=== PATIENT | female | born 1965 | race Caucasian/White ===

== ENCOUNTER → 2018-06-27 | Outpatient (CLI) | payer SELFPAY ==
--- NOTE | 2018-06-27 15:02 | RADIOLOGY IMAGING REPORT ---
FACILITY: [facility] PATIENT NAME: Daysi Christiansen : 1965 MR: [id number] V: [id number] EXAM DATE: ORDERING PHYSICIAN: AYLIN JENKINS TECHNOLOGIST: Location: [facility] [place] Patient: Daysi Christiansen : 1965 Visit/Account:[id number] Date of Sevice: 06/27/2018 INDICATION: . Equivocal lesion in the region of the right greater trochanter demonstrated on prior r adiographs. DATE: 06/27/2018 2:52 PM. TECHNIQUE: HIP RIGHT W/O CONTRAST. Noncontrast axial CT imaging was performed of the right hip with s agittal and coronal reformats. One of the following dose optimization techniques was utilized in the performance of this exam: Automated exposure control; adjustment of the mA and/or kV according to the patient's size; or use of an iterative reconstruction technique. Specific details can be reference d in the facility's radiology CT exam operational policy. COMPARISON: Hip radiographs June 22, 2018. FINDINGS: No fracture or dislocation of the right hip. There is minimal enthesopathy at the right greater troch anter along the gluteal attachments. There is no sclerotic or lytic lesion at the right greater troch anter. No hip joint effusion. The musculature about the right hip is unremarkable by CT. IMPRESSION: There is no lesion of the right greater trochanter. Report Dictated By: Gracie Khan MD at 06/27/2018 2:52 PM Report E-Signed By: Gracie Khan MD at 06/27/2018 2:57 PM WSN:[id number]
== END ==
LOC: CT 13:51
PROVIDERS: ATTEND Physician Assistant Medical
DX: R93.7 Abnormal findings on diagnostic imaging of other parts of musculoskeletal system (principal)

== ENCOUNTER → 2019-01-24 | Outpatient (CLI) | payer BC ==
[~2019-01-24] MED LIST: ACET-1966 PO; ARNICA PO; RESCUE REMEDY PO; [UNRECOGNIZED DRUG - OTHER] PO; [UNRECOGNIZED DRUG - REMARK] PO
[2019-01-24 15:45] LABS: PLATELET COUNT, AUTOMATED 300 K/uL (150-450)
--- NOTE | 2019-01-24 16:30 | EKG ---
FACILITY: [facility] [place] PATIENT NAME: EVAN MCCRAY : [id number] MR: [id number] V: [id number] EXAM DATE: ORDERING PHYSICIAN: LEN MELÉNDEZ TECHNOLOGIST: ANGEL Test Reason : PRE OP Blood Pressure : / mmHG Vent. Rate : 067 BPM Atrial Rate : 067 BPM P-R Int : 148 ms QRS Dur : 088 ms QT Int : 400 ms P-R-T Axes : 076 048 021 degrees QTc Int : 422 ms Normal sinus rhythm Possible Anterior infarct , age undetermined vs lead placement T wave flattening inferiorly consistent with ischemia vs normal variant No previous ECG to compare Confirmed by AKANKSHA TAVARES ([id number]) on 01/24/2019 8:04:45 PM Referred By: MEDHAT Confirmed By:AKANKSHA TAVARES
== END ==
LOC: LAB 15:10
PROVIDERS: ATTEND Student in an Organized Health Care Education/Training Program
DX: Z01.812 Encounter for preprocedural laboratory examination (principal); Z01.810 Encounter for preprocedural cardiovascular examination
CPT/HCPCS: 36415; 82310; 82374; 82435; 82565; 82947; 84132; 84295; 84520; 85025; 93005

== ENCOUNTER 2019-02-01 07:00 | Observation (INO) | payer BC ==
[2019-02-01] VITALS (16 sets, daily range): BP systolic 144–179; BP diastolic 76–104
[~2019-02-01] VITALS: Ht 157.5 cm; Wt 76.2 kg
[~2019-02-01 07:00] MED LIST changes: +CLINDAMYCIN(*) 900 MG/NS 50 ML 50 ML IVPB ONE; +FAMOTIDINE 20 MG TAB PO ONE; +GENTAMICIN IVPB ONE; +LIDOCAINE/SOD BICARB 8.4% SYR ID ONE; +MIDAZOLAM 2 MG/2 ML VIAL IVP PRN; +NORMOSOL R SOLN(*) 1000 ML BAG 1,000 ML IV PRN; +NS 0.9% IVPB ONE; +PHENAZOPYRIDINE 200 MG TAB PO ONE
[2019-02-01] MEDS ORDERED: BUPIV/EPI 0.25% 1:200,000 50ML INFIL ONE (07:05)
--- NOTE | 2019-02-01 07:19 | History & Physical ---
History of Present Illness Age of Patient: 53 : 2 Para or TPAL: 2 Chief Complaint Vaginal Bulge with standing. History of Present Illness 53-year-old 2 para 2 who presented to clinic to discuss possibility of hysterectomy. Pt was counseled on options to include pessary vs surgical management. Decided to proceed with surgical management. Patient was seen approximately 1 month ago for a vaginal bulge that was noted to be cervix just distal to the hymen. Patient desires to proceed with hysterectomy and has multiple questions today concerning history. Reports Paps up-to-date with no history of abnormal. Patient denies any urinary incontinence with her current vaginal bulge or prior to filling the sensation of have in the bulge. Patient reports that she is use a tampon to reduce the bulge with no incontinence at that time. This does help improve her symptoms overall. Patient has questions about removing ovaries at time of surgery versus leaving them. Previous Visit Note CC: 53-year-old female who presents to clinic with a chief complaint of a vaginal bulge. Patient reports that she noticed symptoms roughly few weeks ago. Reports this happened shortly after a significant fall on ice. Patient reports that it is nontender. Denies any erythema, redness, inflammation, or vaginal discharge. Denies any vaginal bleeding. Pap smear was collected at [facility] in 2013 and patient was told it was normal in needed to repeat in 5 years. Patient concerned about the possibility of uterine prolapse is this is a significant problem her mother dealt with. No changes in sexual partners. No fevers or chills. History Allergies: Coded Allergies: corn (Verified Allergy, Severe, AIRWAY OBSTRUCTION, 01/20/19) Penicillins (Unverified Allergy, Intermediate, HIVES, RASH, SOB, 11/08/18) Sulfa (Sulfonamide Antibiotics) (Unverified Allergy, Intermediate, RASH, HIVES, SOB, 11/08/18) ibuprofen (Unverified Allergy, Mild, HEADACHE, 11/08/18) Social History: Denies X 3. Lives in [place]. 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 Family History: Dementia MOTHER FH: Parkinson's disease BROTHER OR SISTER FH: diabetes mellitus GRANDFATHERS FH: heart disease FATHER MGM FH: leukemia BROTHER OR SISTER Med Rec Home Meds Reported Medications [Arnica] No Conflict Check, 1 TAB PO DAILY PRN for PAIN 01/20/19 [Green Vibrances] No Conflict Check, 1 TAB PO DAILY 01/20/19 [Rescue Remedy] No Conflict Check, 1 TAB PO DAILY 01/20/19 [Anti-Stress] No Conflict Check, 1 TAB PO HS 01/20/19 Acetaminophen (TYLENOL) 325 Mg Tablet, 325 MG PO PRN, TAB 01/20/19 Review of Systems All Systems Reviewed/Normal: Yes, Except as Noted Constitutional: No Fever, No Weight Loss, No Weight Gain, No Chills, No Night Sweats, No Other Neurological: No Syncope, No Confusion, No Weakness, No Dizziness, No Slurred Speech, No Other Eyes: No Vision Change, No Loss of Vision, No Photophobia, No Other ENT: No Hearing Loss, No Sinus Congestion, No Sore Throat, No Ear Ache, No Tinnitus, No Other Cardiovascular: No Chest Pain, No Palpitations, No Orthostatic Hypotension, No Other Respiratory: No Shortness of Breath, No Cough, No Wheezing, No Other Gastrointestinal: No Nausea, No Vomiting, No Diarrhea, No Dysphagia, No Constipation, No Early Satiety, No Hematemesis, No Hematochezia, No Melena, No Abdominal Pain, No Other Genitourinary: No Dysuria, No Hematuria, No Urinary Incontinence, No Other Musculoskeletal: No Pain, No Sprain, No Strain, No Impaired Mobility, No Other Psychiatric: No Depression, No Anxiety, No Other Exam General Exam General Apperance: Alert/Awake/No Acute Distress Neuro: No Gross deficits Eyes: Normal Extraocular Movement & Vison, PERRLA ENT: Normal Cardiovascular: Regular Rate and Rhythm Respiratory: No Respiratory Distress, Clear to Auscultation Abdomen: Soft, Non-Tender, Non-Distended : Normal Musculoskeletal: No Weakness/Pain Integumentary: Skin Intact without Lesions or Rash Psychological: Alert & Oriented X3 Medical Decision Making Pre-Admit Course Medical Record Review: Yes VTE Prophylasis: Adult Deep Vein Thrombosis/Pulmonary: No Assessment and Plan 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 Possible left oopherectomy. Will also plan for MMK or Uterosacral suspension. LEN MELÉNDEZ DO Feb 01, 2019 07:18
[2019-02-01] MEDS ORDERED: ACETAMINOPHEN(*)1000 MG/100 ML 100 ML IVPB ONE (07:36)
[2019-02-01] MEDS ORDERED: PROPOFOL EMUL(*) 10MG/ML 20 ML 20 ML ONE (08:58)
[2019-02-01] MEDS ORDERED: fentaNYL CITR 250 MCG/5 ML AMP ONE (08:58)
[2019-02-01] MEDS ORDERED: DEXAMETHASONE SOD 4 MG/ML VIAL ONE (08:58)
[2019-02-01] MEDS ORDERED: LIDOCAINE MPF 1% 5 ML VIAL ONE (08:58)
[2019-02-01] MEDS ORDERED: ONDANSETRON 4 MG/2 ML VIAL ONE (08:58)
[2019-02-01] MEDS ORDERED: METOCLOPRAMIDE 10 MG/2 ML SDV ONE (08:58)
[2019-02-01] MEDS ORDERED: PROMETHAZINE 25 MG/ML 1 ML AMP IVP PRN (10:00)
[2019-02-01] MEDS ORDERED: ONDANSETRON 4 MG/2 ML VIAL IV PRN (10:00)
[2019-02-01] MEDS ORDERED: ZOLPIDEM TARTRATE 10 MG TAB PO PRN (10:00)
--- NOTE | 2019-02-01 12:00 | Post Operative Note ---
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 Ureter vermiculation bilaterally. Uretral jets with expression of urine bilaterally on cystoscopy Procedure(s): RATL BS and Cystoscopy Specimen Removed:(Maybe N/A): Uterus and Tubes Complications: 0 known Fluids Fluids: 1300 u/o 100 Estimated Blood Loss: less then 100 Dictated Date OP Note Dictated: Feb 01, 2019 Time OP Note Dictated: 11:59 LEN GEORGES DO Feb 01, 2019 12:00
[2019-02-01] MEDS: oxyCODONE HCL 5 MG CAP PO PRN ×3 (12:10→23:25)
[2019-02-01] MEDS: ACETAMINOPHEN 325 MG TAB PO SCH ×3 (12:10→23:25)
[2019-02-01] MEDS: SIMETHICONE 80 MG CHEW CHEW PRN (12:10)
[2019-02-01] MEDS: DLR(*) 1000 ML BAG 1,000 ML IV PRN ×2 (12:10→17:46)
--- NOTE | 2019-02-01 12:59 | OPERATIVE REPORT 1 ---
EVENT DATE: February 01, 2019 SURGEON: Pernell Georges DO ANESTHESIOLOGIST: Gutierrez Moy MD ANESTHESIA: General endotracheal intubation with 20 cc 0.2% ropivacaine. YOUTH DIRECTOR: Rafia King MD PREOPERATIVE DIAGNOSES 1. 53-year-old, 2, para 2. 2. Uterine prolapse. POSTOPERATIVE DIAGNOSES 1. 53-year-old, 2, para 2. 2. Uterine prolapse. PROCEDURE PERFORMED Robot assisted total laparoscopic hysterectomy with bilateral salpingectomy and diagnostic cystoscopy. FINDINGS Normal tubes and ovaries bilaterally. Ureteral vermiculation noted post and preoperatively. Bilateral ureteral jets with expression of urine bilaterally on cystoscopy. ESTIMATED BLOOD LOSS Less than 100 cc. IV FLUIDS 1300 cc lactated Ringers. URINE OUTPUT 100 cc. PATHOLOGY Uterus and fallopian tubes. CONDITION Stable to recovery room. COMPLICATIONS None known. COUNTS Correct for all needles, lap, sponges and instruments. INDICATIONS AND CONSENT Patient is a 53-year-old, 2, para 2 who presented to the clinic with chief complaint of feeling a vaginal bulge. She was examined and noted to have a grade 2 uterine prolapse. Because of this, she was counseled on the options to include conservative management and just watch and then when it became super symptomatic proceed with surgery, pessary management or surgical management at this time. Patient thought about it and after some time did decide to proceed with definitive surgical management. She was counseled accordingly and signed all consents and proceeded for robot-assisted laparoscopic hysterectomy. DESCRIPTION OF PROCEDURE The patient was taken to the operating room, where she was placed in the dorsal supine position. She then underwent general endotracheal intubation. With anesthesia achieved, she was then placed in the dorsal lithotomy position, prepped and draped in the usual sterile manner. A sterile speculum was placed in the vagina. The cervix was visualized and grasped with an Allis clamp. Uterus was sounded and noted to be 7 cm. A VCare uterine manipulator was placed without any difficulty. Cannon catheter was then placed. Legs were then placed in low Trendelenburg. Surgeon's gloves were then removed and changed. Attention was then turned to the laparoscopic portion of the procedure. A 5 mm incision was then made approximately 5 cm above the umbilicus. The abdomen was entered directly under laparoscopic visualization with a Visiport trocar. Once inside the abdomen, pneumoperitoneum was achieved. The site of entry was inspected and found to be without injury. Additional trocars were placed lateral to the umbilical trocar and these were placed under direct laparoscopic visualization. The patient was then placed in Trendelenburg position. Uterus and ovaries were easily visualized and the robot was then docked. With the robotic arms docked, attention was then turned to the hysterectomy and salpingectomy. The left fallopian tube was grasped. Bipolar cautery was then used to transect the mesosalpinx, removing the fallopian tube from the ovarian origin all the way to the uterus with bipolar cautery. The fallopian tube was then handed to collections assistant and removed through the collections assistant port. Same procedure was performed on the right fallopian tube, grasping the fallopian tube and cauterizing the mesosalpinx using bipolar cautery from distal to proximal all the way to the uterus. This fallopian tube was also handed to the collections assistant through the collections assistant trocar. The uteroovarian ligament and round ligament were then cauterized with bipolar cautery and transected and . Broad ligament was entered and an anterior leaf was created with bipolar cautery all the way to midline. A posterior leaf was also created with bipolar cautery to the midline of the posterior uterus. Uterine vasculature was skeletonized and visualized. It was cauterized x2 and transected. The VCare manipulator cup was easily palpated through the remaining tissue and some of the remaining broad ligament was easily dissected off the vaginal cuff. At this point, attention was then turned to the right aspect of the procedure. The uteroovarian ligament and round ligament were transected with bipolar cautery. The broad ligament was entered and transected, creating an anterior leaf meeting at midline with the prior incision with bipolar cautery. Posterior leaf was also connected at midline. Uterine vasculature was skeletonized. It was visualized. It was cauterized perpendicular to the uterus and transected. The remaining broad ligament and caudal ligaments were transected off the area where the uterine VCare manipulator was. At this point, with all the ligaments and vasculature taken care of, a colpotomy incision was created with monopolar scissors in a circumferential manner until the uterine VCare cup was visualized. This incision was then extended circumferentially around the uterus. At this point, the uterus was removed through the vagina and left in the vagina to help with pneumoperitoneum. The left angle of the vagina was closed in a [id number] with a 0 V-Loc. The remaining aspect of the vagina was then closed with a 0 V- Loc in a running manner. With the vagina closed, part of the closure also encompassed the uterosacral ligaments to help with level 1 support of the vagina, ensuring good apical support. At this point, the suture was cut and removed through the isthmus and trocar. The 11 mm trocar was then closed using a Osiel-Vaughan under direct laparoscopic visualization. With that fascial segment closed, pneumoperitoneum was released and the trocar incisions were then closed with 4-0 Monocryl in interrupted manner and covered with V-Loc. Next, cystoscopy. Urinary catheter was removed. Cystoscopy was placed through the urethra. The bladder was then filled with normal saline. The dome of the bladder was inspected, as was the trigone, and found to be without any injury. Both ureteral jets were visualized with urine expressed bilaterally. At this point, the bladder was drained. The Cannon catheter was replaced. The patient was then awoken and transferred to the recovery room in stable condition. LISANDRO
[2019-02-01] MEDS: DOCUSATE CALCIUM 240 MG CAP PO SCH (20:28)
[2019-02-01] MEDS: FAMOTIDINE 20 MG TAB PO SCH (20:28)
[2019-02-02] VITALS (7 sets, daily range): BP systolic 130–164; BP diastolic 66–102
[2019-02-02] MEDS: ACETAMINOPHEN 325 MG TAB PO SCH ×3 (05:59→19:25)
[2019-02-02 06:41] LABS: PLATELET COUNT, AUTOMATED 271 K/uL (150-450)
[2019-02-02] MEDS: DOCUSATE CALCIUM 240 MG CAP PO SCH ×2 (07:51→19:44)
[2019-02-02] MEDS: oxyCODONE HCL 5 MG CAP PO PRN ×2 (07:51→19:34)
[2019-02-02] MEDS: FAMOTIDINE 20 MG TAB PO SCH ×2 (07:52→19:44)
--- NOTE | 2019-02-02 08:55 | OB/GYN Progress Note ---
OB Subjective Progress Notes Subjective Doing good POD # 1. Reports she has ambulated in room only. Did require narcotic pain medication this morning. Voiding with out minimal difficulty. Catheter has been out only for a few hours. Tolerating regular diet. No n/v. GI: NEG Nausea, NEG Vomiting, NEG Flatus, NEG Bowel Movement : Voiding Well, Scant Pain: Mild, Comfortable, Tolerating PO Pain Meds Eyes: No Visual Disturbances OB Objective Physical Exam Vital Signs Date Time Temp Pulse Resp B/P (MAP) Pulse Ox O2 Delivery O2 Flow Rate FiO2 02/02/19 05:56 149/66 (93) 94 02/02/19 04:59 77 02/02/19 03:11 99.0 18 Room Air 02/01/19 12:46 1.0 Intake and Output 02/02/19 07:00 Intake Total 3311 ml Output Total 4125 ml Balance -814 ml Intake Oral 720 ml IV Total 2591 ml Output Urine Total 4025 ml Estimated Blood Loss 100 ml # Voids 1 General Appearance: Alert/Awake/No Acute Distress Neurological: No Gross deficits Eyes: Normal Extraocular Movement & Vison, PERRLA Cardiovascular: Normal Rhythm & Peripheral Pulses, Regular Rate and Rhythm Respiratory: No Respiratory Distress, Clear to Auscultation Abdomen: Soft, Non-Tender, Non-Distended Incision: Clean, Dry, Intact, Dermabond : Normal Musculoskeletal: No Weakness/Pain Extremities: No Cyanosis,Clubbing or Edema Integumentary: Skin Intact without Lesions or Rash Psychological: Alert & Oriented X3, Appropriate Mood & Affect Result Diagram: 02/02/19 0627 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 Patient tolerated by mouth pain medicines without any difficulty. It is slightly uncomfortable while ambulating. 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 We'll continue to monitor patient's pain today discussed possible discharge. LEN MELÉNDEZ DO Feb 02, 2019 08:55
[2019-02-02] MEDS ORDERED: INFLUENZA VIRUS VAC 0.5ML SYR IM ONLY ONE (09:00)
[2019-02-02] MEDS ORDERED: OXYC-865 PO (09:02)
--- NOTE | 2019-02-02 09:04 | OB/GYN Discharge Summary ---
Discharge Summary Reason for Hosp/Final Diag: (1) Uterine prolapse Status: Resolved (2) History of robot-assisted laparoscopic hysterectomy Hospital Course & Plan: Patient presented to hospital for a scheduled hysterectomy. Patient underwent hysterectomy secondary to uterine prolapse symptomatically did not want conservative medical management. She's mother also underwent procedure and patient did not want to have it is progressive some others was. Patient underwent procedure without any difficulty see operative note for details procedure. Patient made in the hospital for 2 days postoperatively for pain control and management. Patient was discharged home to follow-up in 2 weeks. Lates Vital Signs Vital Signs Date Time Temp Pulse Resp B/P (MAP) Pulse Ox O2 Delivery O2 Flow Rate FiO2 02/02/19 05:56 149/66 (93) 94 02/02/19 04:59 77 02/02/19 03:11 99.0 18 Room Air 02/01/19 12:46 1.0 Weight (Pounds): 168 Result Diagram: 02/02/19 0627 Condition: Improved Discharge: Home Home Meds Active Scripts Oxycodone Hcl/Acetaminophen (PERCOCET 5-325 MG TABLET) 1 Each Tablet, 1 EACH PO Q6-8H PRN for PAIN, #20 TAB 0 Refills Prov:LEN MELÉNDEZ DO 02/02/19 Reported Medications [Arnica] No Conflict Check, 1 TAB PO DAILY PRN for PAIN 01/20/19 [Green Vibrances] No Conflict Check, 1 TAB PO DAILY 01/20/19 [Rescue Remedy] No Conflict Check, 1 TAB PO DAILY 01/20/19 [Anti-Stress] No Conflict Check, 1 TAB PO HS 01/20/19 Acetaminophen (TYLENOL) 325 Mg Tablet, 325 MG PO PRN, TAB 01/20/19 Follow up with: [facility] [place] [phone], Dr. Meléndez [phone] Follow up in: 6 wks PP or PO, 2 wks PO Discharge Diet: As Tolerates Discharge Activity: As Tolerates, Pelvic Rest LEN MELÉNDEZ DO Feb 02, 2019 09:04
[2019-02-02] MEDS: SIMETHICONE 80 MG CHEW CHEW PRN (19:45)
[2019-02-02] MEDS ORDERED: NIFEdipine 10 MG CAP PO ONE (20:00)
[2019-02-03 00:14] VITALS: BP 154/88
[2019-02-03] MEDS ORDERED: ACETAMINOPHEN 325 MG TAB PO SCH ×2 (01:00→08:00)
[2019-02-03 02:33] VITALS: BP 155/89
[2019-02-03 07:40] VITALS: BP 166/92
[2019-02-03] MEDS: DOCUSATE CALCIUM 240 MG CAP PO SCH (08:34)
[2019-02-03] MEDS: FAMOTIDINE 20 MG TAB PO SCH (08:34)
[2019-02-03] MEDS: SIMETHICONE 80 MG CHEW CHEW PRN (08:35)
[2019-02-03] MEDS ORDERED: NIFEdipine XL 30 MG TABCR PO ONE (09:00)
--- NOTE | 2019-02-03 11:34 | OB/GYN Progress Note ---
OB Subjective Progress Notes Subjective Doing good this morning. Reports pain better controlled. No longer experiencing "gas pain." Tolerating regular diet. Voiding with out any difficulty. GI: NEG Nausea, NEG Vomiting, NEG Flatus, NEG Bowel Movement Pain: Mild Neurological: No Headache, No Other Eyes: No Visual Disturbances OB Objective Physical Exam Vital Signs Date Time Temp Pulse Resp B/P (MAP) Pulse Ox O2 Delivery O2 Flow Rate FiO2 02/03/19 08:08 96 Room Air 02/03/19 07:40 97.9 74 16 166/92 (116) 0.5 Intake and Output 02/03/19 07:00 Intake Total 980 ml Output Total 1150 ml Balance -170 ml Intake Oral 980 ml Output Urine Total 1150 ml # Voids 6 General Appearance: Alert/Awake/No Acute Distress Neurological: No Gross deficits Eyes: Normal Extraocular Movement & Vison, PERRLA Cardiovascular: Normal Rhythm & Peripheral Pulses, Regular Rate and Rhythm Respiratory: No Respiratory Distress, Clear to Auscultation Abdomen: Soft, Non-Tender, Non-Distended Incision: Clean, Dry, Intact, Dermabond : Normal Musculoskeletal: No Weakness/Pain Extremities: No Cyanosis,Clubbing or Edema Integumentary: Skin Intact without Lesions or Rash Psychological: Alert & Oriented X3, Appropriate Mood & Affect Result Diagram: 02/02/19 0627 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 Plan to discharge home today. Follow up in 2 weeks. (2) History of robot-assisted laparoscopic hysterectomy LEN MELÉNDEZ DO Feb 03, 2019 11:34
== END 2019-02-03 10:36 | disposition home or self-care (01) ==
LOC: OR 07:00 → INTOOBSV 11:40 → PED 11:40
PROVIDERS: ADMIT Student in an Organized Health Care Education/Training Program; ATTEND Student in an Organized Health Care Education/Training Program
DX: N81.2 Incomplete uterovaginal prolapse (principal); I10 Essential (primary) hypertension
CPT/HCPCS: 36415; 58571; 84703; 85014; 85018; 85025; 88307; G0378; J0131; J1100; J1580; J2001; J2250; J2405; J2704; J2765; J3010; J3490; J7050; S2900